=== PATIENT | male | born 1970 | race Caucasian/White ===

== ENCOUNTER → 2022-08-25 | Outpatient (CLI) | payer SELFPAY | END | disposition home or self-care (01) | LOC: LAB SHORT 08:30 | DX: J02.9 Acute pharyngitis, unspecified (principal) | CPT/HCPCS: 87081 ==

== ENCOUNTER 2024-11-19 14:54 | Emergency (ER) | payer OTHER ==
[~2024-11-19] VITALS: Ht 188 cm; Wt 113.4 kg
[2024-11-19 15:31] VITALS: BP 162/101
[2024-11-19] MEDS ORDERED: Trimethoprim/Sulfamethoxazole DS Tab PO ONE (16:30)
[2024-11-19] MEDS ORDERED: Cephalexin Monohydrate 500 MG Cap PO ONE (16:30)
[2024-11-19] MEDS ORDERED: CEPH500 PO (16:34)
[2024-11-19] MEDS ORDERED: BACTRIM DS TAB1 EAC1 PO (16:34)
[2024-11-19] MEDS ORDERED: Ketorolac Tromethamine 15mg Vial IM ONE (16:35)
[2024-11-21] MEDS ORDERED: IBUP400 PO ×2 (12:17)
[2024-12-01] MEDS ORDERED: NICO21TP TOP ×2 (09:10)
[2024-12-01] MEDS ORDERED: VISBIOME 112.51 EACH PO ×2 (09:11)
[2024-12-01] MEDS ORDERED: AMOCLA875 PO ×2 (09:12)
[2024-12-01] MEDS ORDERED: DOXY100 PO ×2 (09:12)
== END 2024-11-19 17:12 | disposition home or self-care (01) ==
LOC: ER 14:54
DX: L03.115 Cellulitis of right lower limb (principal); F17.210 Nicotine dependence, cigarettes, uncomplicated
CPT/HCPCS: 96372; 99282-25; A9270; J1885

== ENCOUNTER 2024-11-21 00:46 | Inpatient (IN) | payer OTHER ==
[~2024-11-21] VITALS: Ht 188 cm; Wt 114.7 kg
[~2024-11-21 00:46] MED LIST: BACTRIM DS TAB1 EAC1 PO; CEPH500 PO
[2024-11-21] MEDS ORDERED: Cefepime HCl 2,000 MG in NS 100 ML IV ONE (02:50)
[2024-11-21] MEDS ORDERED: Vancomycin HCL 2,000 MG in NS 500 ML IV ONE (02:55)
[2024-11-21 03:13] LABS: BASOPHILS ABSOLUTE AUTO 0.05 K/mm3 (0.00-0.23); BASOPHILS PERCENT AUTO 0 % (0-2); EOSINOPHILS ABSOLUTE AUTO 0.06 K/mm3 (0.00-0.68); EOSINOPHILS PERCENT AUTO 1 % (0-6); Hematocrit 44.8 % (37.0-53.0); Hemoglobin 15.1 g/dL (13.5-17.5); IMMATURE GRAN ABSOLUTE AUTO 0.06 K/mm3 (0.00-0.10); IMMATURE GRAN PERCENT AUTO 1 % (0-1); LYMPHOCYTES ABSOLUTE AUTO 0.61 K/mm3 (0.84-5.20); LYMPHOCYTES PERCENT AUTO 5 % (21-46); MONOCYTES PERCENT AUTO 7 % (4-13); Mean Corpuscular HGB 31.7 pg (26.0-34.0); Mean Corpuscular HGB Conc 33.7 g/dL (31.5-36.5); Mean Corpuscular Volume 94 fL (80-100); Mean Platelet Volume 10.7 fL (9.1-12.4); NEUTROPHILS ABSOLUTE AUTO 9.96 K/mm3 (1.96-9.15); NEUTROPHILS PERCENT AUTO 86 % (41-73); Platelet Count 122 K/mm3 (150-400); RDW Coefficient Variation 12.4 % (11.7-14.2); RDW Standard Deviation 43.1 fL (35.1-46.3); Red Blood Cell Count 4.76 M/mm3 (4.30-5.90); White Blood Cell Count 11.54 K/mm3 (4.00-11.30)
[2024-11-21 03:39] LABS: Source, Urine Clean Catch
[2024-11-21 03:39] LABS: Albumin, Blood 3.2 g/dL (3.4-5.0); Albumin/Globulin Ratio 0.8 (0.8-1.8); Bilirubin, Total 0.6 mg/dL (0.1-1.0); Bun/Creatinine Ratio 17.8 (12.0-20.0); Calcium, Blood 8.6 mg/dL (8.5-10.1); Creatinine, Blood 0.9 mg/dL (0.60-1.20); Globulin, Blood 3.9 g/dL (2.2-4.0); Potassium, Blood 4.1 mmol/L (3.5-5.5); Total Protein, Blood 7.1 g/dL (6.4-8.2)
[2024-11-21 03:59] LABS: Blood, Urine Neg (Neg); Glucose Qualitative, Urine Neg (Neg); Ketones, Urine Neg (Neg); Leukocyte Esterase, Urine 1+ (Neg); Nitrite, Urine Neg (Neg); Protein, Urine 1+ (Neg); Specific Gravity, Urine 1.025 (1.003-1.022); Urobilinogen, Urine 1+ (Normal)
[2024-11-21 04:06] LABS: Appearance, Urine Clear (Clear); Bilirubin, Urine 1+ (Neg); Color, Urine Amber (P-Yellow)
[2024-11-21 04:08] LABS: Bacteria Many /hpf; Red Blood Cells, Urine 0-2 /hpf (0-2); Squamous Epithelial Cells Few /hpf (Few); White Blood Cells, Urine 0-2 /hpf (0-5)
[2024-11-21] MEDS ORDERED: MetroNIDAZOLE 500MG/NS 100 ml 100 ML IV SCH (04:51)
[2024-11-21] MEDS ORDERED: Nicotine Polacrilex 2 MG Gum PO PRN (05:50)
[2024-11-21 12:05] VITALS: BP 141/80
[2024-11-21] MEDS ORDERED: IBUP400 PO (12:17)
[2024-11-21] MEDS ORDERED: Aspirin EC650 MG PO (12:17)
[2024-11-21] MEDS ORDERED: Ibuprofen 400 MG Tab PO PRN (12:40)
[2024-11-21] MEDS ORDERED: FLU VACC TS2024-25(6MOS UP)/PF 45 MCG/0.5 ML SYRINGE IM ONE (12:50)
[2024-11-21] MEDS ORDERED: Acetaminophen 325 MG TABLET PO PRN (12:50)
[2024-11-21] MEDS ORDERED: Prochlorperazine Edisylate 10 mg Vial IV PRN (12:50)
[2024-11-21] MEDS ORDERED: OxyCODONE HCL 5 MG TAB PO PRN (12:50)
[2024-11-21] MEDS ORDERED: NS 250 ML IV PRN (13:10)
[2024-11-21 15:17] VITALS: BP 130/80
--- NOTE | 2024-11-21 16:27 | NUR ---
SHIFT SUMMARY MR BECK WAS ADMITTED TO THE SURGICAL UNIT FROM THE ER TODAY VIA WHEELCHAIR. ABLE TO STAND AND TRANSFER INDEPENDENTLY. INCREASED PAIN TO RIGHT GROIN AREA WHEN HE WALKS AND TRANSFERS. RIGHT INNER THIGH AND RIGHT SCROTAL REDNESS AND SWELLING WITHIN THE ER MARKED PEN LINE. IBUPROFEN HELPED FOR PAIN RELIEF. GOOD APPETITE. MR BECK SMOKE 1/2PPD CIGARETTES, GIVEN NICORETTE GUM. HE DENIES HAVING ANY IGNITION SOURCES OR TOBACCO WITH HIM. EDUCATED ON [facility] NON SMOKING POLICY. T.O. FROM DR PIPER TO D/C CONTINUOUS PULSE OX. CALL LIGHT IN REACH, INDEPENDENT IN THE ROOM WITH STEADY GAIT.
[2024-11-21] MEDS ORDERED: Vancomycin HCL 1,750 MG in NS 500 ML IV SCH (17:00)
[2024-11-21] MEDS ORDERED: CeFAZolin Sodium 2,000 MG in NS 100 ML IV SCH (18:00)
[2024-11-21 19:34] VITALS: BP 118/67
[2024-11-21] MEDS ORDERED: Cefepime HCl 2,000 MG in NS 100 ML IV SCH (21:00)
[2024-11-21] MEDS ORDERED: Sennosides 8.6 MG Tab PO SCH (21:00)
--- NOTE | 2024-11-21 23:11 | NUR ---
ABCESS DRAINING PT NOTIFIED THIS NURSE THAT ABCESS IN GROIN WAS DRAINING. SMALL AMOUNT SEROSANGUINOUS FLUID DRAINING FROM SCROTAL AREA. AREA CLEANED AND PAD PLACED UNDER PT. REDNESS IN THIGH/GROIN REGION IMPROVED. PT ALSO STATED PAIN HAS IMPROVED.
--- NOTE | 2024-11-22 03:36 | NUR ---
SHIFT SUMMARY PT HERE FOR R GROIN ABCESS. PAIN MANAGEABLE THROUGHOUT NIGHT. ABCESS STARTED DRAINING SEROSANGUINOUS FLUID THIS SHIFT, SWELLING AND REDNESS IMPROVED AND PT STATED PAIN IMPROVED WELL. PT INDEPENDENT IN ROOM, CALL LIGHT IN REACH.
[2024-11-22 04:27] VITALS: BP 124/87
[2024-11-22 05:15] LABS: BASOPHILS ABSOLUTE AUTO 0.06 K/mm3 (0.00-0.23); BASOPHILS PERCENT AUTO 1 % (0-2); Hematocrit 40.7 % (37.0-53.0); Hemoglobin 13.8 g/dL (13.5-17.5); LYMPHOCYTES ABSOLUTE AUTO 1.05 K/mm3 (0.84-5.20); LYMPHOCYTES PERCENT AUTO 9 % (21-46); MONOCYTES ABSOLUTE AUTO 0.98 K/mm3 (0.16-1.47); MONOCYTES PERCENT AUTO 9 % (4-13); Mean Corpuscular HGB 31.7 pg (26.0-34.0); Mean Corpuscular HGB Conc 33.9 g/dL (31.5-36.5); Mean Corpuscular Volume 93 fL (80-100); Mean Platelet Volume 11.1 fL (9.1-12.4); Platelet Count 133 K/mm3 (150-400); RDW Coefficient Variation 12.4 % (11.7-14.2); RDW Standard Deviation 42.9 fL (35.1-46.3); Red Blood Cell Count 4.36 M/mm3 (4.30-5.90); White Blood Cell Count 11.35 K/mm3 (4.00-11.30)
[2024-11-22 05:23] LABS: EOSINOPHILS ABSOLUTE AUTO 0.12 K/mm3 (0.00-0.68); EOSINOPHILS PERCENT AUTO 1 % (0-6); IMMATURE GRAN ABSOLUTE AUTO 0.06 K/mm3 (0.00-0.10); IMMATURE GRAN PERCENT AUTO 1 % (0-1); NEUTROPHILS ABSOLUTE AUTO 9.08 K/mm3 (1.96-9.15); NEUTROPHILS PERCENT AUTO 80 % (41-73)
[2024-11-22 05:34] LABS: Bun/Creatinine Ratio 14.6 (12.0-20.0); Calcium, Blood 8.1 mg/dL (8.5-10.1); Creatinine, Blood 1.03 mg/dL (0.60-1.20); Potassium, Blood 3.9 mmol/L (3.5-5.5)
[2024-11-22 05:53] LABS: BAND PERCENT MAN 3 % (0-8); BASOPHILS PERCENT MAN 0 % (0-2); EOSINOPHILS PERCENT MAN 0 % (0-6); LYMPHOCYTES ABSOLUTE MAN 1.36 K/mm3 (0.84-5.20); LYMPHOCYTES PERCENT MAN 12 % (21-46); MONOCYTES ABSOLUTE MAN 1.13 K/mm3 (0.16-1.47); MONOCYTES PERCENT MAN 10 % (4-13); NEUTROPHILS ABSOLUTE MAN 8.85 K/mm3 (1.96-9.15); SEG NEUTROPHILS PERCENT MAN 75 % (41-73); TOTAL CELLS COUNTED 100
[2024-11-22 07:11] VITALS: BP 104/74
[2024-11-22] MEDS ORDERED: Nicotine 21 MG PATCH TOP SCH (09:00)
[2024-11-22] MEDS ORDERED: Enoxaparin 40 MG/0.4 ML SYR SC SCH (09:00)
--- NOTE | 2024-11-22 09:33 | NUR ---
PATIENT GOT OUT OF SHOWER; WASHED AFFECTED AREA WELL. HE STATES THAT THERE WAS A LOT OF DRAINAGE FROM SIT AND FEELS THAT THE REDNESS IF SPREADING. AREA ASSESSED AND NEW LINES MARKED FOR REDNESS. DRAINAGE IS MALODOROUS AND IS DRAINING PURLENT/SEROSANGENOUS FLUID. DRAINAGE SITE IS INDURATED.
--- NOTE | 2024-11-22 10:38 | NUR ---
Pt. is awake and sitting in a chair by the window when he welcomes my visit. facilitated a life review and listened with empathy and interest. Pt. is unsettled about his prognosis, and verbalizes that he has many questions. Consider some matters of dana and belief. Pt. displayed evidence of being concerned, but compliant. Prayed with the Pt. Pt. verbalized gratitude for the spiritual care visit and welcomed this chpalain to return.
[2024-11-22] MEDS ORDERED: Vancomycin HCL 1,750 MG in NS 500 ML IV SCH (12:00)
[2024-11-22 14:38] VITALS: BP 126/79
--- NOTE | 2024-11-22 15:35 | NUR ---
NOTIFIED DR. PIPER OF PATIENT'S FEVER AND INTERVENTIONS. NO NEW ORDERS.
[2024-11-22] MEDS ORDERED: MetroNIDAZOLE 500MG/NS 100 ml 100 ML IV SCH (16:00)
--- NOTE | 2024-11-22 16:35 | NUR ---
SHIFT SUMMARY: PATIENT IS ALERT AND ORIENTEDX4/INDEPENDENT, MAKES NEEDS KNOWN. HIS ANTIBIOTIC THERAPY WAS CHANGED TODAY; WORSENING REDNESS AND DRAINAGE OF AFFECTED AREA (R INNER GROIN) PATIENT BECAME FEBRILE THIS AFTERNOON; SEE NURSE NOTE. PATIENT PLANS ON HAVING A PROCEDURE TOMORROW WITH DR. MESSER; WILL BE NPO AT 0000 11/23/24. PATIENT IN BED, GRANDDAUGHTER AT BEDSIDE, CALL LIGHT WITHIN REACH, NO SIGNS OR SYMPTOMS OF DISTRESS, PLAN OF CARE ONGOING.
[2024-11-22 19:24] VITALS: BP 137/84
[2024-11-23] VITALS (16 sets, daily range): BP systolic 106–145; BP diastolic 59–92
--- NOTE | 2024-11-23 05:01 | NUR ---
SHIFT SUMMARY NORA WAS ALERT AND FULLY ORIENTED ON ASSESSMENT. PT INDEPENDENT. RED AREA WAS PREVIOUSLY REMARKED ON DAY SHIFT, REDNESS CONTINUES TO GROW BEYOND BORDER. DISCUSSED WITH ANESTHESIOLOGIST AND CRITICAL CARE. PT MODERATELY PAINFUL, MEDICATED PER EMAR. NO ACUTE EVENTS THIS SHIFT.
[2024-11-23 06:31] LABS: BASOPHILS ABSOLUTE AUTO 0.04 K/mm3 (0.00-0.23); BASOPHILS PERCENT AUTO 0 % (0-2); EOSINOPHILS ABSOLUTE AUTO 0.11 K/mm3 (0.00-0.68); EOSINOPHILS PERCENT AUTO 1 % (0-6); Hematocrit 38.3 % (37.0-53.0); Hemoglobin 13.3 g/dL (13.5-17.5); IMMATURE GRAN ABSOLUTE AUTO 0.09 K/mm3 (0.00-0.10); IMMATURE GRAN PERCENT AUTO 1 % (0-1); LYMPHOCYTES ABSOLUTE AUTO 0.72 K/mm3 (0.84-5.20); LYMPHOCYTES PERCENT AUTO 7 % (21-46); MONOCYTES PERCENT AUTO 11 % (4-13); Mean Corpuscular HGB 32.1 pg (26.0-34.0); Mean Corpuscular HGB Conc 34.7 g/dL (31.5-36.5); Mean Corpuscular Volume 93 fL (80-100); Mean Platelet Volume 11.1 fL (9.1-12.4); NEUTROPHILS ABSOLUTE AUTO 8.36 K/mm3 (1.96-9.15); NEUTROPHILS PERCENT AUTO 80 % (41-73); Platelet Count 142 K/mm3 (150-400); RDW Coefficient Variation 12.7 % (11.7-14.2); RDW Standard Deviation 43.7 fL (35.1-46.3); Red Blood Cell Count 4.14 M/mm3 (4.30-5.90); White Blood Cell Count 10.52 K/mm3 (4.00-11.30)
[2024-11-23] MEDS ORDERED: Clindamycin 900mg in D5W 50ML 50 ML IV SCH (08:00)
[2024-11-23] MEDS ORDERED: Meropenem 1,000 MG in NS 100 ML IV SCH (08:00)
[2024-11-23] MEDS ORDERED: Lactated Ringer's 1,000 ML IV SCH (08:40)
[2024-11-23] MEDS ORDERED: propofoL 20 ML IV ONE (08:58)
[2024-11-23] MEDS ORDERED: FentaNYL Citrate 50 MCG/ML 2 ML Injection ONE (08:59)
--- NOTE | 2024-11-23 09:33 | NUR ---
PT INTO [facility] VIA [facility] FOR I+D OF RIGHT GROIN ABCESS. Patient confirms NPO status and agrees with scheduled surgery. Pre-Op teaching done. Pt verbalizes understanding. History, Chart, Medications and Allergies reviewed before start of procedure.
[2024-11-23] MEDS ORDERED: Bupivacaine 0.5% HCl 5 MG/ML 30MLVIAL ONE (09:38)
[2024-11-23] MEDS ORDERED: Ondansetron HCl 2 MG / ML 2ML Vial ONE (10:09)
[2024-11-23] MEDS ORDERED: HYDROmorphone HCl/Pf 1MG SYR ONE (10:46)
--- NOTE | 2024-11-23 12:29 | NUR ---
POST-OP PATIENT TO ROOM @1215 VITALS STABLE ON 3L NC, SATS 93-95%. DENIES PAIN. GABRIELLA DRAIN INTACT WITH GAUZE AND BRIEFS IN PLACE. ANN-MARIE NOTED S/S. ORDERS TO CHANGE GAUZE AND REINFORCE PRN. PATIENT IS EATING AND DRINKING TOLERATING WELL.
[2024-11-23 13:26] LABS: Vancomycin, Trough 8.8 ug/mL (5.0-10.0)
[2024-11-23] MEDS ORDERED: Vancomycin HCL 1,500 MG in NS 250 ML IV SCH (14:00)
--- NOTE | 2024-11-23 17:28 | NUR ---
SHIFT SUMMARY PAIENT IS POD#0 FOR I&D ON ABSCESS OF RIGHT GROIN, GABRIELLA DRAIN PLACED GAUZE AND BRIEFS IN PLACE. S/S DRNG NOTED. VOIDING, TOLERATING PO INTAKE. DENIES N/T, N/V. MEDICATED FOR PAIN THIS EVENING. IV ABX INFUSING AND VITALS ARE STABLE. CALL LIGHT IN REACH.
--- NOTE | 2024-11-24 04:25 | NUR ---
SHIFT SUMMARY NORA WAS ALERT AND FULLY ORIENTED ON ASSESMENT. PT HAD I&D WITH DUAL GABRIELLA PLACEMENTS ON DAY SHIFT. PT STATES THAT PAIN HAS DECREASED SINCE SURGERY. DRAINS PRODUCING PURULENT S/S DRAINAGE. DRESSING CHANGED PRN. NO ACUTE EVENTS THIS SHIFT. NO OTHER CHANGES NOTED. PT AMBULATING AND VOIDING APPROPRIATLY.
[2024-11-24 05:08] VITALS: BP 122/73
[2024-11-24 07:08] VITALS: BP 123/78
[2024-11-24 13:35] LABS: Creatinine, Blood 0.75 mg/dL (0.60-1.20); Vancomycin, Trough 16.6 ug/mL (5.0-10.0)
[2024-11-24 14:37] VITALS: BP 124/78
--- NOTE | 2024-11-24 16:00 | NUR ---
ASSUMED CARE OF PATIENT AT THIS TIME.
--- NOTE | 2024-11-24 16:11 | NUR ---
SHIFT SUMMARY/TRANSFER OF CARE PT IS A/OX4, IND W/ AMBULATION. R GROIN/UPPER THIGH/R BUTTOCK SWOLLEN/RED. PT GETTING IV ABX. GABRIELLA DRAINS IN PLACE DRAINING SS FLUID. VSS. PAIN MANAGEABLE W/ IBUPROFEN PER EMAR. RESTING IN CHAIR W/ CALL LIGHT IN REACH. HOLDEN AT BEDSIDE. REPORT TO HALIE JOHN.
--- NOTE | 2024-11-24 17:51 | NUR ---
PT STABLE SINCE THIS RN ASSUMED CARE AT 1600. PT UP TO SHOWER. INDEP IN HALLWAYS TO AMBULATE. PT HAS HAD SOME DIFFICULTY MAINTAINING IV ACCESS, ADJUSTING ABX NEEDED. TOLERATING DIET. PAIN AT MINIMAL LEVEL, HAS ONLY REQUIRED IBUPROFEN X1.
[2024-11-24 19:15] VITALS: BP 124/74
[2024-11-25 03:37] VITALS: BP 118/71
[2024-11-25 03:57] LABS: BASOPHILS ABSOLUTE AUTO 0.07 K/mm3 (0.00-0.23); BASOPHILS PERCENT AUTO 1 % (0-2); EOSINOPHILS ABSOLUTE AUTO 0.18 K/mm3 (0.00-0.68); EOSINOPHILS PERCENT AUTO 2 % (0-6); Hematocrit 34.6 % (37.0-53.0); Hemoglobin 11.8 g/dL (13.5-17.5); IMMATURE GRAN ABSOLUTE AUTO 0.15 K/mm3 (0.00-0.10); IMMATURE GRAN PERCENT AUTO 1 % (0-1); LYMPHOCYTES ABSOLUTE AUTO 1.36 K/mm3 (0.84-5.20); LYMPHOCYTES PERCENT AUTO 11 % (21-46); MONOCYTES ABSOLUTE AUTO 1.47 K/mm3 (0.16-1.47); MONOCYTES PERCENT AUTO 12 % (4-13); Mean Corpuscular HGB Conc 34.1 g/dL (31.5-36.5); Mean Corpuscular Volume 94 fL (80-100); Mean Platelet Volume 10.3 fL (9.1-12.4); NEUTROPHILS ABSOLUTE AUTO 8.76 K/mm3 (1.96-9.15); NEUTROPHILS PERCENT AUTO 73 % (41-73); Platelet Count 191 K/mm3 (150-400); RDW Coefficient Variation 12.5 % (11.7-14.2); RDW Standard Deviation 43.3 fL (35.1-46.3); Red Blood Cell Count 3.69 M/mm3 (4.30-5.90); White Blood Cell Count 11.99 K/mm3 (4.00-11.30)
[2024-11-25 04:22] LABS: Bun/Creatinine Ratio 12.6 (12.0-20.0); Calcium, Blood 7.5 mg/dL (8.5-10.1); Creatinine, Blood 0.87 mg/dL (0.60-1.20); Potassium, Blood 3.9 mmol/L (3.5-5.5)
[2024-11-25 07:08] VITALS: BP 117/70
--- NOTE | 2024-11-25 07:59 | NUR ---
NO ACUTE CHANGES NOTED.
--- NOTE | 2024-11-25 11:27 | NUR ---
DR PIPER IN TO SEE PT.
[2024-11-25 14:25] VITALS: BP 129/61
--- NOTE | 2024-11-25 17:03 | NUR ---
SUMMARY NO ACUTE CHANGES T/O SHIFT. PT INDEPENDENT IN ROOM. IV ABX PER ORDERS. CALL LIGHT IN REACH.
[2024-11-25 19:00] VITALS: BP 124/69
[2024-11-25] MEDS ORDERED: Lactobacil 2-S.Thermo-Bifido 1 1 Cap PO SCH (21:00)
[2024-11-26 04:47] VITALS: BP 130/88
[2024-11-26 07:12] VITALS: BP 134/86
--- NOTE | 2024-11-26 07:50 | NUR ---
SUMMARY NO ACUTE CHANGES TONIGHT.
[2024-11-26] MEDS ORDERED: Piperacillin/Tazobactam Sod 3.375 GM in NS 100 ML IV ONE (09:10)
[2024-11-26] MEDS ORDERED: Clindamycin 900mg in D5W 50ML 50 ML IV ONE (09:10)
--- NOTE | 2024-11-26 14:05 | NUR ---
PT CURRENTLY BACK IN ROOM. LAB CALLED [facility]IA [employer] AND NOTIFIED TO DRAW VANCOMYCIN TROUGH
--- NOTE | 2024-11-26 14:07 | NUR ---
LAB IN TO DRAW VANCOMYCIN TROUGH
[2024-11-26 15:04] LABS: Vancomycin, Trough 20.2 ug/mL (5.0-10.0)
--- NOTE | 2024-11-26 16:43 | NUR ---
end of shift Right lateral wound edge outlined with skin marker per md. antibiotics infusing. awaiting adjusted vancomycin dosing per [facility]. will continue to monitor.
[2024-11-26] MEDS ORDERED: Clindamycin 900mg in D5W 50ML 50 ML IV SCH (17:00)
[2024-11-26] MEDS ORDERED: Piperacillin/Tazobactam Sod 3.375 GM in NS 100 ML IV SCH (17:00)
[2024-11-26 17:06] VITALS: BP 147/79
[2024-11-26] MEDS ORDERED: Vancomycin HCL 1,500 MG in NS 250 ML IV SCH (18:00)
[2024-11-26 19:25] VITALS: BP 130/78
[2024-11-27 04:56] VITALS: BP 136/83
[2024-11-27 05:22] LABS: Hematocrit 36.3 % (37.0-53.0); Hemoglobin 12.4 g/dL (13.5-17.5); Mean Corpuscular HGB 31.6 pg (26.0-34.0); Mean Corpuscular HGB Conc 34.2 g/dL (31.5-36.5); Mean Corpuscular Volume 93 fL (80-100); Mean Platelet Volume 10.1 fL (9.1-12.4); Platelet Count 268 K/mm3 (150-400); RDW Coefficient Variation 12.7 % (11.7-14.2); RDW Standard Deviation 42.9 fL (35.1-46.3); Red Blood Cell Count 3.92 M/mm3 (4.30-5.90); White Blood Cell Count 12.62 K/mm3 (4.00-11.30)
[2024-11-27 05:40] LABS: Bun/Creatinine Ratio 11.3 (12.0-20.0); Calcium, Blood 8.1 mg/dL (8.5-10.1); Creatinine, Blood 0.88 mg/dL (0.60-1.20); Potassium, Blood 4.3 mmol/L (3.5-5.5)
--- NOTE | 2024-11-27 06:47 | NUR ---
NOC SUMMARY- NO NEW ISSUES. PT HAS RESTED WELL. PT TOOK A SHOWER. PT TOLERATING PO AND VOIDING. CALL LIGHT IN REACH.
[2024-11-27 07:29] VITALS: BP 124/81
[2024-11-27 16:01] VITALS: BP 156/91
--- NOTE | 2024-11-27 17:48 | NUR ---
END OF SHIFT PT RESTING. ANTIBIOTICS INFUSING. PT DENIES COMPLAINTS.
[2024-11-27 18:15] LABS: Vancomycin, Trough 14.4 ug/mL (5.0-10.0)
[2024-11-27 20:03] VITALS: BP 122/76
[2024-11-28 04:38] VITALS: BP 144/83
--- NOTE | 2024-11-28 06:33 | NUR ---
SHIFT SUMMARY;PATIENT AWAKE SOME OF THE NIGHT. MEDICATED FOR PAIN. IV INFILTRATED, AND IT WAS DECIDED TO PUT IN POWER GLIDE. WHICH IS WORKING WELL.AMB WITH W/C TO SMOKE OUTSIDE THE HOSPITAL, JUST ONCE DURING MY SHIFT.
[2024-11-28 08:12] VITALS: BP 129/86
[2024-11-28 16:00] VITALS: BP 137/87
--- NOTE | 2024-11-28 17:18 | NUR ---
SUMMARY CONT. W/ IV ABX, AMBULATED OUTSIDE X3 TODAY, DENIED ANY NEED FOR PAIN MEDS TODAY, NEW ABD PAD APPLIED TO R GROIN AFTER SHOWER TODAY, NO ACUTE CHANGES THIS SHIFT.
[2024-11-28 19:47] VITALS: BP 127/87
--- NOTE | 2024-11-29 05:07 | NUR ---
SHIFT SUMMARY PT HAS BEEN INDEPENDENT IN ROOM, AMBULATES OUT IN [place]. PAIN MANAGED PER EMAR. IV ANTIBIOTICS PER ORDERS. PLAN OF CARE REMAINS UNCHANGED. BED IN LOWEST, CALL LIGHT WITHIN REACH.
[2024-11-29 05:18] VITALS: BP 126/77
[2024-11-29 07:37] VITALS: BP 127/74
--- NOTE | 2024-11-29 11:26 | NUR ---
Pt. is awake inbed and welcomes my visit. Pt. is pleasant. An update is facilitated, and the Pt. verbalizes his understanding of the slow improvement that Dr. Duvall is working with. Pt. verbalizes a great respect for Dr. Duvall. Consider matters of healing, freedom , and the Pts. desire to get outside again. Listen with interst and empathy. Prayed for Pt. Pt. verbalized gratitude for the spiritual care visit and welcomed this board mill supervisor to return.
[2024-11-29 15:42] VITALS: BP 97/72
--- NOTE | 2024-11-29 16:52 | NUR ---
SUMMARY AMBULATED X3 TODAY, CONT. W/ IV ABX, DENIES ANY PAIN, PT DECLINED TO HAVE R GROIN RE-ASSESSED THIS AFTERNOON, STATES HE WASHED AREA THIS AFTERNOON AND SITE "LOOKS GOOD" NO ACUTE CHANGES THIS SHIFT.
[2024-11-29 18:19] LABS: Creatinine, Blood 1.14 mg/dL (0.60-1.20); Vancomycin, Trough 19.4 ug/mL (5.0-10.0)
[2024-11-29 19:57] VITALS: BP 146/84
[2024-11-30 02:14] VITALS: BP 118/73
--- NOTE | 2024-11-30 04:28 | NUR ---
SHIFT SUMMARY NORA WAS ALERT AND FULLY ORIENTED ON ASSESSMENT. PT INDEPENDENT. UNEVENTFUL SHIFT. PT DENIES PAIN SOB OR ANY NEW COMPLAINTS. GROIN AREA CLEANED/REDRESSED PRN. NO ACUTE EVENTS OR CHANGES NOTED TO PT CONDITION.
[2024-11-30 05:30] LABS: Hematocrit 41.3 % (37.0-53.0); Hemoglobin 13.7 g/dL (13.5-17.5); Mean Corpuscular HGB 31.1 pg (26.0-34.0); Mean Corpuscular HGB Conc 33.2 g/dL (31.5-36.5); Mean Corpuscular Volume 94 fL (80-100); Mean Platelet Volume 9.5 fL (9.1-12.4); Platelet Count 348 K/mm3 (150-400); RDW Coefficient Variation 12.7 % (11.7-14.2); RDW Standard Deviation 43.8 fL (35.1-46.3); Red Blood Cell Count 4.41 M/mm3 (4.30-5.90); White Blood Cell Count 10.48 K/mm3 (4.00-11.30)
[2024-11-30 05:44] LABS: Bun/Creatinine Ratio 12.5 (12.0-20.0); Calcium, Blood 8.6 mg/dL (8.5-10.1); Creatinine, Blood 1.12 mg/dL (0.60-1.20); Potassium, Blood 4.5 mmol/L (3.5-5.5)
[2024-11-30 07:59] VITALS: BP 112/71
[2024-11-30 15:51] VITALS: BP 131/84
[2024-11-30 17:47] LABS: Vancomycin, Trough 22.8 ug/mL (5.0-10.0)
--- NOTE | 2024-11-30 17:58 | NUR ---
SHIFT SUMMARY PT IS A/OX4, IND IN ROOM. VOIDING, TOLERATING REG DIET. INCISION SITE BRENNAN, REDNESS/SWELLING IMPROVING. GABRIELLA DRAIN DC'D TODAY BY DR. DOW. IV ABX GIVEN ORDERED. PT DENIES PAIN. VSS. PT USING CALL LIGHT APPROPRIATELY.
[2024-11-30 19:19] VITALS: BP 124/80
--- NOTE | 2024-11-30 20:45 | NUR ---
193- PATIENT AND 2 FAMILY MEMBERS COME OUT OF RM 209. PATIENT IS FULLY DRESSED. PT ASKED WHO RADHA WAS, INTRODUCED MYSELF TO PT. HE SAID IM GOING TO BE GONE FOR A BIT AND WILL BE BACK. ADELE JOHN TOLD ME THAT HE LEAVES FOR AWHILE THEN RETURNS BACK TO ROOM. PATIENT GOT BACK TO ROOM AT 2041. PATIENT BY HIMSELF AND REPORTED THAT HIS DAUGHTER WENT HOME.
[2024-12-01] MEDS ORDERED: Vancomycin HCL 1,500 MG in NS 250 ML IV SCH
[2024-12-01 05:07] VITALS: BP 125/73
[2024-12-01 07:10] VITALS: BP 121/88
--- NOTE | 2024-12-01 07:52 | NUR ---
PT UP AD [place] AND DOES REALLY WELL GETTING TO THE BR AND BACK TO BED. PATIENT IS AWARE OF ONLY 25% WT BEARING. DRESSING TO RT FOOT AND ANKLE C/D/I WITH FABRICIO WRAP OVER THE DRESSING. PATIENT TELLS ME THAT HE MIGHT GO HOME TOMORROW AND THAT HE IS WAITING TO GET THE WOUND VAC. SCHEDULED MEDICATIONS GIVEN ORDERED T/O NOC. PATIENT WITH NO C/O PAIN T/O NOC. PATIENT DID HAVE A SHOWER PRIOR TO GOING TO BED. RLE WITH 1-2+ PITTED EDEMA NOTED. SL LEFT WRIST FLUSHED AND HELD UP T/O NOC. PATIENT IN ISOLATION FOR VRE AND MRSA. REPORT TO RN TAKING PATIENT.
--- NOTE | 2024-12-01 08:08 | NUR ---
PATIENT A&OX4. SCHEDULED MEDICATIONS GIVEN ORDERED. DENIES PAIN T/O NOC. POWER GLIDE IV TO RIGHT UPPER ARM. PATIENT GETTING SEVERAL IV ANTIBIOTICS. PATIENT IS VERY MODEST AND WILL SHOW ONE OF THE INCISIONS WHERE THE GABRIELLA DRAIN WAS D/C'D. THERE IS STILL SOME RED AREAS THAT ARE FIRM TO THE TOUCH BUT PATIENT REPORTS THAT IT IS A LOT BETTER THAN IT WAS. NO ACUTE CHANGES T/O NOC. PATIENT MAKES NEEDS KNOWN. WILL GIVE REPORT TO ONCOMING RN TAKING PATIENT.
[2024-12-01] MEDS ORDERED: NICO21TP TOP (09:10)
[2024-12-01] MEDS ORDERED: VISBIOME 112.51 EACH PO (09:11)
[2024-12-01] MEDS ORDERED: AMOCLA875 PO (09:12)
[2024-12-01] MEDS ORDERED: DOXY100 PO (09:12)
--- NOTE | 2024-12-01 09:50 | NUR ---
DISCHARGE NOTE: PT D/C AT APPROX 6132. PT DENIES QUESTIONS OR CONCERNS AT TIME OF DICHARGE. IV REMOVED, PT EDUCATED ON FOLLOW UP INSTRUCTIONS AND VERBALIZED UNDERSTANDING. MEDICATIONS FAXED TO [facility].
[2024-12-05] MEDS ORDERED: LINE600 PO (11:18)
== END 2024-12-01 09:55 | disposition home or self-care (01) | DRG 854 ==
LOC: ER 00:46 → EOR 03:14 → SURS 03:14
PROVIDERS: Emergency Medicine; Internal Medicine; ADMIT Internal Medicine
PROC: 0Y950ZZ Drainage of Right Inguinal Region, Open Approach (ICD-10-PCS; principal; 2024-11-21)
PROC: 3E03329 Introduction of Other Anti-infective into Peripheral Vein, Percutaneous Approach (ICD-10-PCS; 2024-11-21)
DX: A41.9 Sepsis, unspecified organism (principal); L02.214 Cutaneous abscess of groin; L03.314 Cellulitis of groin; L02.415 Cutaneous abscess of right lower limb; L03.115 Cellulitis of right lower limb; M79.651 Pain in right thigh; F17.210 Nicotine dependence, cigarettes, uncomplicated; F10.10 Alcohol abuse, uncomplicated; Z79.899 Other long term (current) drug therapy; Z79.2 Long term (current) use of antibiotics; Z28.21 Immunization not carried out because of patient refusal
CPT/HCPCS: 36415; 72193; 74177; 80048; 80053; 80202; 81001; 82565; 83605; 85025; 85027; 87040; 87086; 93005; 93010; 96372; 99282-25; 99284-25; A9270; J0690; J0692; J1171; J1650; J1885; J2185; J2405; J2543; J2704; J3010; J3370; J7040; J7050; Q9967

== ENCOUNTER 2024-12-03 14:52 | Inpatient (IN) | payer OTHER ==
[~2024-12-03] VITALS: Ht 188 cm; Wt 112.3 kg
[~2024-12-03 14:52] MED LIST changes: +AMOCLA875 PO; +Aspirin EC650 MG PO; +DOXY100 PO; +IBUP400 PO; +NICO21TP TOP; +VISBIOME 112.51 EACH PO
[2024-12-03 15:44] LABS: BASOPHILS ABSOLUTE AUTO 0.16 K/mm3 (0.00-0.23); BASOPHILS PERCENT AUTO 1 % (0-2); EOSINOPHILS ABSOLUTE AUTO 0.14 K/mm3 (0.00-0.68); EOSINOPHILS PERCENT AUTO 1 % (0-6); Hematocrit 42.6 % (37.0-53.0); Hemoglobin 14.5 g/dL (13.5-17.5); IMMATURE GRAN ABSOLUTE AUTO 0.18 K/mm3 (0.00-0.10); IMMATURE GRAN PERCENT AUTO 1 % (0-1); LYMPHOCYTES ABSOLUTE AUTO 1.88 K/mm3 (0.84-5.20); LYMPHOCYTES PERCENT AUTO 13 % (21-46); MONOCYTES ABSOLUTE AUTO 0.75 K/mm3 (0.16-1.47); MONOCYTES PERCENT AUTO 5 % (4-13); Mean Corpuscular HGB 31.1 pg (26.0-34.0); Mean Corpuscular Volume 91 fL (80-100); Mean Platelet Volume 9.7 fL (9.1-12.4); NEUTROPHILS ABSOLUTE AUTO 11.71 K/mm3 (1.96-9.15); NEUTROPHILS PERCENT AUTO 79 % (41-73); Platelet Count 347 K/mm3 (150-400); RDW Coefficient Variation 12.8 % (11.7-14.2); RDW Standard Deviation 43.2 fL (35.1-46.3); Red Blood Cell Count 4.66 M/mm3 (4.30-5.90); White Blood Cell Count 14.82 K/mm3 (4.00-11.30)
[2024-12-03 16:04] LABS: Alanine Aminotransfer (ALT/SGP 83 U/L (12-78); Albumin, Blood 3.3 g/dL (3.4-5.0); Albumin/Globulin Ratio 0.7 (0.8-1.8); Alk Phos 108 U/L (50-136); Anion Gap 9 mmol/L (3-11); Aspartate Aminotrans (AST/SGOT 32 U/L (12-37); Bilirubin, Total 0.2 mg/dL (0.1-1.0); Blood Urea Nitrogen 18 mg/dL (8-24); Bun/Creatinine Ratio 16.5 (12.0-20.0); CO2, Blood 27 mmol/L (21-32); Calcium, Blood 9.3 mg/dL (8.5-10.1); Chloride, Blood 102 mmol/L (98-108); Creatinine, Blood 1.09 mg/dL (0.60-1.20); Globulin, Blood 4.6 g/dL (2.2-4.0); Glomerular Filtration Rate 80 (60-); Glucose, Blood 143 mg/dL (70-99); Potassium, Blood 3.8 mmol/L (3.5-5.5); Sodium, Blood 134 mmol/L (136-145); Total Protein, Blood 7.9 g/dL (6.4-8.2)
[2024-12-03] MEDS ORDERED: Vancomycin HCL 2,000 MG in NS 500 ML IV ONE (18:30)
[2024-12-03] MEDS ORDERED: OxyCODONE 5 mg/Acetamin 325 mg TABLET PO PRN (20:35)
[2024-12-03] MEDS ORDERED: Ondansetron HCl 2 MG / ML 2ML Vial IV PRN (20:35)
[2024-12-03] MEDS ORDERED: NS 1,000 ML IV SCH (20:40)
[2024-12-03] MEDS ORDERED: Docusate Sodium/Senna 1 Tab PO SCH (21:00)
[2024-12-03] MEDS ORDERED: Lactobacil 2-S.Thermo-Bifido 1 1 Cap PO SCH (21:00)
[2024-12-03] MEDS ORDERED: Piperacillin/Tazobactam Sod 3.375 GM in NS 100 ML IV SCH (21:00)
[2024-12-03 23:14] VITALS: BP 127/85
--- NOTE | 2024-12-04 00:43 | NUR ---
TRANSFER SUMMARY: PT AOX4 ARRIVED FROM ED VIA WHEELECHAIR. SELF TRANSFERRED TO BED. PT ORIENTED TO ROOM. PT IN BED RESTING, BED IN LOWEST POSITION, CALL LIGHT IN REACH. CONTINUING CARE
[2024-12-04] MEDS ORDERED: NS 250 ML IV PRN (01:15)
[2024-12-04] MEDS ORDERED: Vancomycin HCL 1,000 MG in NS 250 ML IV SCH (03:00)
--- NOTE | 2024-12-04 04:36 | NUR ---
SHIFT SUMMARY: PT AOX4 IND IN THE ROOM. CALLS APPROPRIATELY AND ABLE TO MAKE NEEDS KNOWN. TOLERATING MEDICATIONS WELL. DENIES PAIN, CP, AND SOB. MADE CLEAR THAT HE DOESNT WANT ANY STOOL SOFTENERS. INCISION SITE FROM I&D CDI. NO ACUTE EVENTS OVERNIGHT. PT IN BED SLEEPING, BED IN LOWEST POSITION, CALL LIGHT IN REACH. CONTINUING CARE.
[2024-12-04 04:47] VITALS: BP 130/74
[2024-12-04 06:06] LABS: Hemoglobin 13.7 g/dL (13.5-17.5); Mean Corpuscular HGB 31.4 pg (26.0-34.0); Mean Corpuscular HGB Conc 33.4 g/dL (31.5-36.5); Mean Corpuscular Volume 94 fL (80-100); Mean Platelet Volume 9.5 fL (9.1-12.4); Platelet Count 308 K/mm3 (150-400); RDW Coefficient Variation 12.8 % (11.7-14.2); RDW Standard Deviation 44.1 fL (35.1-46.3); Red Blood Cell Count 4.36 M/mm3 (4.30-5.90); White Blood Cell Count 9.12 K/mm3 (4.00-11.30)
[2024-12-04 06:28] LABS: Bun/Creatinine Ratio 16.7 (12.0-20.0); Calcium, Blood 8.7 mg/dL (8.5-10.1); Creatinine, Blood 0.96 mg/dL (0.60-1.20); Potassium, Blood 4.4 mmol/L (3.5-5.5)
[2024-12-04 08:00] VITALS: BP 118/87
[2024-12-04] MEDS ORDERED: Enoxaparin 40 MG/0.4 ML SYR SC SCH (09:00)
[2024-12-04 15:57] VITALS: BP 133/81
--- NOTE | 2024-12-04 16:14 | NUR ---
Upon receiving a referral for spiritual care, I visited the patient. He shares about his infection and the plan to manage with antibiotics. He speaks about his frustration about getting antibiotics in the hospital and then seeing the infection comeback and then coming back to the hospital. 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 We talk about his spiritual journey and how he clearly sees the work of something/someone bigger than himself as he stands deep in the forest. I provided therapeutic listening and prayer. The patient responded well and showed signs of being encouraged in his dana journey.
--- NOTE | 2024-12-04 16:24 | NUR ---
SHIFT SUMMARY NO ACUTE CHANGES. PT REMAINS A/Ox4, VITALS STABLE, INDEPENDENT. DENIES PAIN BESIDES MINIMAL PAIN IN RLE WITH AMBULATION - PT DENIES NEED FOR PAIN MANAGEMENT. PT SWITCHED TO ORAL ANTIBIOTICS TODAY. NEW MARKINGS ON RLE AND MEASUREMENT OF ANKLE OBTAINED FOR MORE ACCURATE MONITORING SINCE IV ANTIBIOTICS DISCONTINUED. R ANKLE AT LARGEST POINT MEASURING 28.5 CM. GOOD APPETITE. ABLE TO MAKE NEEDS KNOWN. NS CONTINUES INFUSING AT 100 ML/HR. PT CURRENTLY RESTING IN BED WITH BED IN LOWEST POSITION AND CALL LIGHT WITHIN REACH.
[2024-12-04 19:14] VITALS: BP 119/79
[2024-12-04] MEDS ORDERED: Linezolid 600 MG Tab PO SCH (21:00)
--- NOTE | 2024-12-05 04:09 | NUR ---
SHIFT SUMMARY ADMITTED FOR RLE CELLULITIS. FULL CODE. PO ANTIB RX SCHEDULED. IV FLUIDS INFUSING ORDERED. ON RA, REGULAR DIET, A&O X4, INDEPENDENT. NO NEW CONCERNS THIS SHIFT.
[2024-12-05 04:45] VITALS: BP 125/85
[2024-12-05 07:45] VITALS: BP 124/95
[2024-12-05] MEDS ORDERED: LINE600 PO ×2 (11:18)
--- NOTE | 2024-12-05 11:26 | NUR ---
PT DISCHARGED HOME WITH ANTIBIOTICS. NEW RX FAXED TO [facility] RN ENSURED MEDICATION IN STOCK PRIOR TO FAXING FILL REQUEST. REVIEWED DISCHARGE PACKET AND INSTRUCTIONS WITH PT. IV REMOVED BY RN, SITE APPEARS WNL. INSTRUCTED PT TO RETURN TO ER FOR ANY WORSENING SYMPTOMS. PT AMBULATED OUT OF HOSPITAL INDEPENDENTLY, ESCORTED OUT BY MARINE TOWER OPERATOR.
== END 2024-12-05 11:30 | disposition home or self-care (01) | DRG 872 ==
LOC: ER 14:52 → ERHOLD 20:34 → MEDS 20:34
PROVIDERS: Emergency Medicine; Nurse Practitioner Acute Care; ADMIT Internal Medicine
DX: A41.9 Sepsis, unspecified organism (principal); L03.115 Cellulitis of right lower limb; L03.314 Cellulitis of groin; E66.01 Morbid (severe) obesity due to excess calories; F17.210 Nicotine dependence, cigarettes, uncomplicated; Z79.1 Long term (current) use of non-steroidal anti-inflammatories (NSAID); Z79.82 Long term (current) use of aspirin; Z79.2 Long term (current) use of antibiotics; Z79.899 Other long term (current) drug therapy; Z68.32 Body mass index [BMI] 32.0-32.9, adult
CPT/HCPCS: 36415; 80048; 80053; 83036; 83605; 85025; 85027; 86140; 93971; 96365; 96366; 99285-25; A9270; J1650; J2543; J3370; J7030; J7040; J7050